=== PATIENT | male | born 2000 | race Two or more races ===

== ENCOUNTER 2021-11-15 17:28 | Emergency (ER) | payer SELFPAY ==
[~2021-11-15] VITALS: Ht 188 cm; Wt 75.0 kg
[2021-11-15 17:35] VITALS: BP 147/84
== END 2021-11-15 19:20 | disposition home or self-care (01) ==
LOC: ER 17:28
DX: Z00.00 Encounter for general adult medical examination without abnormal findings (principal); R51.9 Headache, unspecified; F84.0 Autistic disorder
CPT/HCPCS: 99283